=== PATIENT | female | born 1990 ===

== ENCOUNTER 2016-11-04 02:00 | Inpatient (IN) | payer OTHER ==
[2016-11-04 02:33] LABS: SPECIFIC GRAVITY 1.025 (1.001-1.030); URINE BILIRUBIN NEGATIVE (NEGATIVE); URINE BLOOD 1+ (NEGATIVE); URINE GLUCOSE (UA) NEGATIVE (NEGATIVE); URINE LEUKOCYTE ESTERASE TRACE (NEGATIVE); URINE NITRITE NEGATIVE (NEGATIVE); URINE PROTEIN NEGATIVE (NEGATIVE); URINE UROBILINOGEN NORMAL (0-1 mg/dl)
[2016-11-04 02:35] LABS: URINE APPEARANCE SL CLOUDY; URINE COLOR YELLOW
[2016-11-04 02:37] LABS: HCG,QUALITATIVE URINE NEGATIVE
[2016-11-04 02:39] LABS: URINE BACTERIA TRACE
[2016-11-04] MEDS ORDERED: ONDANSETRON 4 MG/2ML 2 ML VIAL ONE ×2 (03:57→08:21)
[2016-11-04] MEDS ORDERED: HYDROMORPHONE HCL 0.5 MG/0.5 ML SYRINGE ONE (03:58)
[2016-11-04] MEDS ORDERED: LACTATED RINGERS 1,000 ML ONE (03:58)
[2016-11-04 04:08] LABS: ABSOLUTE NEUTROPHIL COUNT 9.7 K/mm3 (1.8-7.7); BASO % 0.2 % (0.2-1.0); EOS % 0.3 % (0.9-2.9); HEMATOCRIT 42.5 % (37.0-47.0); HEMOGLOBIN 13.7 gm/l (12.0-16.0); IMM NEUT # 0.1 K/mm3 (0-0.2); IMM NEUT% 0.4 % (0-1); LYMPH # 1.6 (1.0-4.8); LYMPH % 13.8 % (15-45); MEAN CELL VOLUME 87.3 fl (81.0-99.0); MEAN CORPUSCULAR HEMOGLOBIN 28.1 pg (27.0-31.0); MEAN CORPUSCULAR HGB CONC 32.2 g/dl (33.0-37.0); MONO # 0.2 (0.0-0.8); NEUT % 83.3 % (43-75); PLATELET COUNT 238 K/mm3 (130-400); RED CELL DISTRIBUTION WIDTH 13.2 % (11.5-14.5)
[2016-11-04 04:18] LABS: ALB/GLOB RATIO 1.3 (>1.0)
[2016-11-04] MEDS ORDERED: MORPHINE SULFATE 4 MG/ML SYRINGE ONE (05:42)
[2016-11-04] MEDS ORDERED: METRONIDAZOLE 500 MG/NS 100 ML 100 ML IV ONE ×2 (05:42→21:33)
[2016-11-04] MEDS ORDERED: CIPROFLOXACIN IV 400 MG 200 ML IV ONE (05:42)
[2016-11-04] MEDS ORDERED: MENTHOL/CETYLPYRD 1 EACH LOZENGE PO PRN (05:47)
[2016-11-04] MEDS ORDERED: BLISTEX LIPSTICK 1 EACH TP PRN (05:47)
[2016-11-04 05:53] VITALS: BMI 24.4
[2016-11-04] MEDS ORDERED: PIPERACILLIN-TAZO PREMIX BAG 3.375 G in Premix (D5W) 50 ml 1 EACH IV SCH (06:00)
[2016-11-04] MEDS: HYDROMORPHONE HCL 1 MG/ML SYRINGE IV PRN ×4 (06:32→22:04)
[2016-11-04] MEDS: LACTATED RINGERS 1,000 ML IV SCH ×3 (07:00→19:10)
[2016-11-04] MEDS: CIPROFLOXACIN IV 400 MG 400 MG in Premix (D5W) 200 ml 1 EACH IV SCH ×2 (07:30→20:02)
[2016-11-04] MEDS ORDERED: PROPOFOL 20 ML IV ONE (08:21)
[2016-11-04] MEDS ORDERED: LIDOCAINE 2% (MULTI DOSE) 10 ML VIAL ONE (08:21)
[2016-11-04] MEDS ORDERED: DEXAMETHASONE SOD PHOS 4 MG/1 ML VIAL ONE (08:21)
[2016-11-04] MEDS ORDERED: FENTANYL 5 ML ONE (08:21)
[2016-11-04] MEDS ORDERED: MIDAZOLAM HCL 1 MG/ML 2ML VIAL ONE (08:21)
[2016-11-04] MEDS ORDERED: SUCCINYLCHOLINE CHL 20 MG/ML DOSE ONE (08:26)
[2016-11-04] MEDS ORDERED: ROCURONIUM BROMIDE 10 MG/ML DOSE IV ONE (08:26)
[2016-11-04] MEDS ORDERED: IOPAMIDOL 300 (61%) 30 ML SDV ONE (08:32)
[2016-11-04] MEDS ORDERED: LIDOCAINE 1%/EPI (MULTI DOSE) 20 ML VIAL ONE (08:32)
[2016-11-04] MEDS ORDERED: SODIUM CHLORIDE 0.9% 50 ML ONE (09:08)
--- NOTE | 2016-11-04 09:36 | US ---
ABDOMINAL-LIMITED COMPARISON: None HISTORY: Epigastric pain, nausea, and vomiting FINDINGS: Gall bladder: Length 6.5 cm in wall thickness 1.6 mm. 1.6 cm mobile gallstone. Negative Gilliland sign. Common bile duct: 6.9 mm. Unable to visualize the common bile duct at the head of the pancreas because of obscuring bowel gas. IMPRESSION: 1. 1.6 cm mobile gallstone. Preliminary report by [facility] radiologist Doug Dominique M.D. 11/04/2016 at 05:13
[2016-11-04] MEDS ORDERED: GLUCAGON,HUMAN RECOMBINANT 1 MG VIAL ONE (09:37)
[2016-11-04] MEDS ORDERED: PROMETHAZINE HCL 25 MG/ML VIAL IM PRN (09:48)
[2016-11-04] MEDS ORDERED: HYDROMORPHONE HCL 1 MG/ML SYRINGE IV PRN (09:48)
[2016-11-04] MEDS ORDERED: FENTANYL 100 MCG/2 ML VIAL IV PRN (09:48)
[2016-11-04] MEDS ORDERED: MEPERIDINE 25 MG/ML SYRINGE IV PRN (09:48)
[2016-11-04] MEDS ORDERED: ONDANSETRON 4 MG/2ML 2 ML VIAL IV PRN (09:48)
[2016-11-04] MEDS ORDERED: ATROPINE SULFATE 0.4 MG/1 ML VIAL IV PRN (09:48)
[2016-11-04] MEDS ORDERED: NALOXONE HCL 0.4 MG/ML VIAL IV PRN (09:48)
[2016-11-04] MEDS ORDERED: GLYCOPYRROLATE 0.2 MG/ML 1ML VIAL ONE ×2 (09:57→10:02)
[2016-11-04] MEDS ORDERED: NEOSTIGMINE METHYLSULFATE 1 MG/ML DOSE ONE (09:57)
[2016-11-04] MEDS ORDERED: LACTATED RINGERS 1,000 ML IV SCH (10:00)
--- NOTE | 2016-11-04 10:10 | PCMBPN ---
Brief Post Op Note: Date of Procedure: 11/04/16 Start Time: 914 Preoperative Diagnosis: 1. Acute cholecystitis w/ possible choledocholithiasis Postoperative Diagnosis: 1. acute cholecystitis with choledocholithiasis and obstruction Procedure: Laparoscopic cholecystectomy with cholangiogram Surgeon: Lucrecia Brady MD Assist:Indigo Anesthesia: GETOscar Findings: see dictation Condition: stable Complications: none IV Fluids: see anesthesia report Urine Output: not recorded mLs Estimated Blood Loss: 5 mLs Tourniquet Time: N/A Specimens: gallbladder Implants: n/a Drains: [N/A]
[2016-11-04] MEDS ORDERED: NALOXONE HCL 0.4 MG/ML VIAL ONE (10:15)
--- NOTE | 2016-11-04 10:18 | PCMON ---
Date of Procedure: 11/04/16 Start Time: 914 PREOPERATIVE DIAGNOSIS Acute cholecystitis with possible choledocholithiasis. POSTOPERATIVE DIAGNOSIS acute cholecystitis with choledocholithiasis. PROCEDURE PERFORMED Laparoscopic cholecystectomy. COMPLICATIONS None. OPERATIVE FINDINGS Cholecystitis and cholangiogram with normal liver ducts, dilated common bile duct and stone blocking. Unable to clear duct with glucagon. ESTIMATED BLOOD LOSS 30 mL. BRIEF INDICATIONS RUBIN DEL ANGEL is a 26 year old F patient with symptoms consistent with gallbladder disease and was admitted for consideration of laparoscopic cholecystectomy. The preoperative liver function tests were slightly elevated and normal bilirubin, and RUQ-focused ultrasound demonstrated cholelithiasis and common duct at upper limits of normal. Risks and benefits of surgery were explained to the patient, including the 1: 200 risk of common bile duct injury and the possible need for conversion to open technique (5%). The patient declined the possible alternatives and agreed to proceed with surgery, providing informed consent. DESCRIPTION OF PROCEDURE The patient was brought to the operating room and placed supine on the operating room table. A surgical briefing was held to verify the correct patient and correct procedure. A general anesthetic was induced uneventfully, followed by the administration of a subcutaneous heparin injection and perioperative antibiotics. Pneumatic compression stockings were placed on the legs and powered on. The abdomen was prepped and draped in a sterile fashion. A 5-mm direct optical view trocar was used to enter the right upper quadrant under direct vision of the abdominal wall layers. Once inside the abdominal cavity, a pneumoperitoneum was created. No injury to underlying structures occurred with placement of this trocar. Once inside the abdominal cavity, an additional 11-mm port was placed in the upper midline just below the xiphisternum. An additional 5-mm port was placed in the supraumbilical position , and a 5-mm port was placed in the right lateral position. All trocars were placed under direct visualization. There was no injury to underlying structures with placement of these trocars. Once inside the abdominal cavity and the pneumoperitoneum was created, the gallbladder was retracted over the liver. We were able to identify inflammation around the gallbladder, and there appeared to be a stone in Anmol pouch. The gallbladder was then grasped by Anmol pouch and retracted up away from the common bile duct. The dissection was initiated with hook electrocautery on the posterior peritoneum covering of the hepatobiliary triangle, followed by the medical border of the gallbladder in the region of Calot triangle. We identified the lymph node of Calot which was not removed during the dissection. We continued our dissection, mobilizing lymph node off the cystic artery. As the triangle was developed, the cystic artery was identified. An intraoperative cholangiogram was performed. The cystic duct and artery were both identified and exposed. A critical view of safety was obtained by clearing all the tissue between the underside of the infundibulum and the liver so the cystic duct and the artery could be clearly seen going into the gallbladder. The triangle of Calot had no aberrant structures or additional anatomy present within the triangle between the liver bed, the cystic duct and the region of the gallbladder. Once the critical view was demonstrated and there was no evidence of additional structures, we turned our attention to clipping the cystic artery and duct. The cystic artery was clipped twice proximally, once distally and transected. This was confirmed as the artery with pulsatile beating in the region of the clips once transected. Once the artery was taken, we turned our attention to clipping the cystic duct. The cystic duct was clipped distally with one clip. Then a small bryon was made in the side of the duct. There was immediate return of bile as if it was under pressure. A catheter was fed through the abdominal wall and into the duct and clipped in place. Cholangiogram with fluoroscopy was done and a stone was identified in the distal common duct. Glucagon was administered and additional hipec was used to try to push the stone through. Unfortunately the stone was unable to be pushed into the duodenum. The catheter was then removed and two clips were placed proximally on the cystic duct and it was divided with endoshears. No injury to the underlying liver occurred with removal of the gallbladder, there was no evidence of bile leak or bile duct injury, and the gallbladder was not perforated with no spillage of stones prior to removal. The gallbladder was then placed in an Endocatch bag and removed through the 11-mm trocar. Once the trocar was removed, we then irrigated the right upper quadrant. The pneumoperitoneum was released, and the trocars were removed under direct visualization. The fascia was closed at the 11 mm port site with 0 vicryl and the skin was closed with 4-0 monocryl. The patient was awakened and taken to recovery in stable condition. All needle instrument and sponge counts were correct at the end of the case.
--- NOTE | 2016-11-04 11:15 | HP ---
RUBIN RIBEIRO [id number] DATE OF : 1990 DATE OF SERVICE: 11/04/2016 CHIEF COMPLAINT: Abdominal pain. HISTORY OF PRESENT ILLNESS: This is a 26-year-old female with epigastric and right upper quadrant abdominal pain. She has had this for several days now. She has come into the ER a couple of times. It has just been getting worse and not better. The pain radiates to her mid back. It is worse with eating. She has had nausea and vomiting. She has had an episode of diarrhea, but nothing today. She also complains of some suprapubic pain and cystitis. No fevers or chills. She said she did feel hot at one point, but never took her temperature. No sick contacts. No other symptoms or complaints to report. PAST MEDICAL HISTORY: Other than cystitis, no other medical issues. PAST SURGICAL HISTORY: No prior surgeries. ALLERGIES: Penicillin. MEDICATIONS: None. FAMILY HISTORY: Diabetes in her father, with some chronic kidney disease in her father. Mother with breast cancer. SOCIAL HISTORY: Denies alcohol use. Denies tobacco use. Denies illicit drug use or marijuana use. REVIEW OF SYSTEMS: General - some fatigue. No fevers or chills. No changes in hunger, thirst or diet. HEENT - no vision changes, hearing loss, ringing in the ears, nasal discharge or sore throat. Heart - no irregular rhythms, racing heartbeats or chest pain. Lungs - no shortness of breath, coughing, sputum or wheezing. Abdomen - some epigastric pain and right upper quadrant pain radiating to the back. Some nausea and vomiting. A little diarrhea. Musculoskeletal - no weakness, fatigue or joint pain. Neurological - no seizures, headaches or loss of consciousness. Skin - no new lesions, rashes or ulcerations. Genitourinary - increase in frequency and urgency. No pain with urination. Psych - no mood swings, anxiety or depression. PHYSICAL EXAMINATION: GENERAL: The patient is afebrile. Vital signs are stable. She is alert and oriented times three. No acute distress. HEENT: Pupils equal, round and reactive to light. Extraocular motor intact. Mucous membranes are moist. NECK: Supple. No lymphadenopathy. HEART: Regular rate and rhythm. No murmurs, rubs or gallops. LUNGS: Clear to auscultation bilaterally. No wheezes, rhonchi or rales. ABDOMEN: Soft and nondistended. Tenderness in the epigastric and right upper quadrant, without rebound or guarding. MUSCULOSKELETAL: Good range of motion and strength throughout. NEUROLOGICAL: Cranial nerves II-XII grossly intact. SKIN: Warm and dry. PSYCH: Mood and affect are normal. Judgement and insight intact. LABS: White count is elevated to 11. LFTs are slightly elevated, but bilirubin is in the normal range. IMAGING: Ultrasound shows a large stone in the neck of the gallbladder, also at the upper limit of normal-sized common bile duct. ASSESSMENT: This is a 26-year-old female with acute cholecystitis, possible choledocholithiasis. PLAN: I am going to take her to the operating room today and do a laparoscopic cholecystectomy with a cholangiogram. If she has a stone, if I cannot get it to pass, we may have to do an ERCP. If she is cleared, then she can go home later today. I discussed this with her and her sibling. I went over risks, benefits and alternatives. I went over recovery with her. I answered all of her questions. They understand and wish to proceed.
--- NOTE | 2016-11-04 12:28 | RAD ---
CHOLANGIOGRAM-OPERATIVE COMPARISON: Abdomen ultrasound, 11/04/2016 HISTORY: Operative cholangiogram performed by Lucrecia Brady M.D.. Cholelithiasis. Fluoroscopy time: 53.1 seconds. Contrast: Low osmolar. FINDINGS: Common bile duct: Obstructed at the head of the pancreas. Intrahepatic bile ducts: Mildly dilated. Duodenum: Normal. IMPRESSION: 1. Obstruction of the common bile duct at the head of the pancreas.
[2016-11-04] MEDS: METRONIDAZOLE 500 MG/NS 100 ML 500 MG in Premix (NS) 100 ml 1 EACH IV SCH ×2 (13:37→21:37)
[2016-11-05] MEDS: LACTATED RINGERS 1,000 ML IV SCH ×3 (01:21→08:29)
[2016-11-05] MEDS: HYDROMORPHONE HCL 1 MG/ML SYRINGE IV PRN ×2 (04:27→05:57)
[2016-11-05] MEDS ORDERED: METRONIDAZOLE 500 MG/NS 100 ML 100 ML IV ONE (05:54)
[2016-11-05] MEDS: METRONIDAZOLE 500 MG/NS 100 ML 500 MG in Premix (NS) 100 ml 1 EACH IV SCH (05:59)
[2016-11-05 06:31] LABS: HEMATOCRIT 33.5 % (37.0-47.0); HEMOGLOBIN 10.8 gm/l (12.0-16.0); MEAN CELL VOLUME 86.6 fl (81.0-99.0); MEAN CORPUSCULAR HEMOGLOBIN 27.9 pg (27.0-31.0); MEAN CORPUSCULAR HGB CONC 32.2 g/dl (33.0-37.0); RED CELL DISTRIBUTION WIDTH 13.4 % (11.5-14.5)
[2016-11-05 06:55] LABS: ALB/GLOB RATIO 1.3 (>1.0); ALBUMIN 3.1 gm/dL (3.5-5.7); CALCIUM 8.3 mg/dL (8.6-10.3)
[2016-11-05] MEDS: CIPROFLOXACIN IV 400 MG 400 MG in Premix (D5W) 200 ml 1 EACH IV SCH (07:48)
[2016-11-05] MEDS ORDERED: IOPAMIDOL 300 (61%) 100 ML VIAL ONE (09:36)
[2016-11-05] MEDS ORDERED: MIDAZOLAM HCL 1 MG/ML 2ML VIAL ONE (10:28)
[2016-11-05] MEDS ORDERED: FENTANYL 100 MCG/2 ML VIAL ONE ×3 (10:28→11:12)
[2016-11-05] MEDS ORDERED: ROCURONIUM BROMIDE 10 MG/ML DOSE IV ONE (10:56)
[2016-11-05] MEDS ORDERED: DIPHENHYDRAMINE HCL 50 MG/1 ML VIAL ONE (10:56)
[2016-11-05] MEDS ORDERED: NEOSTIGMINE METHYLSULFATE 1 MG/ML DOSE ONE (10:56)
[2016-11-05] MEDS ORDERED: LIDOCAINE 2% (MULTI DOSE) 10 ML VIAL ONE (10:56)
[2016-11-05] MEDS ORDERED: GLYCOPYRROLATE 0.2 MG/ML 1ML VIAL ONE (10:56)
[2016-11-05] MEDS ORDERED: PROPOFOL 20 ML IV ONE (10:56)
[2016-11-05] MEDS ORDERED: DEXAMETHASONE SOD PHOS 4 MG/1 ML VIAL ONE (10:56)
[2016-11-05] MEDS ORDERED: ONDANSETRON 4 MG/2ML 2 ML VIAL ONE (10:56)
[2016-11-05] MEDS ORDERED: ATROPINE SULFATE 0.4 MG/1 ML VIAL IV PRN (11:07)
[2016-11-05] MEDS ORDERED: ONDANSETRON 4 MG/2ML 2 ML VIAL IV PRN ×2 (11:07→12:04)
[2016-11-05] MEDS ORDERED: FENTANYL 100 MCG/2 ML VIAL IV PRN (11:07)
[2016-11-05] MEDS ORDERED: PROMETHAZINE HCL 25 MG/ML VIAL IM PRN (11:07)
[2016-11-05] MEDS ORDERED: HYDROMORPHONE HCL 1 MG/ML SYRINGE IV PRN ×2 (11:07→12:04)
[2016-11-05] MEDS ORDERED: NALOXONE HCL 0.4 MG/ML VIAL IV PRN (11:07)
[2016-11-05] MEDS ORDERED: GLUCAGON,HUMAN RECOMBINANT 1 MG VIAL ONE (11:10)
[2016-11-05] MEDS ORDERED: LACTATED RINGERS 1,000 ML IV SCH ×2 (11:15→12:04)
--- NOTE | 2016-11-05 11:34 | PDOC5 ---
ADMIT DATE: 11/04/16 DISCHARGE DATE: 11/05/2016 ADMISSION DIAGNOSES: Acute cholecystitis with choledocholithiasis PROCEDURES PERFORMED THIS HOSPITALIZATION: Cholecystectomy with cholangiogram and ERCP with sphincterotomy and stone extration CONSULTATIONS: None HOSPITAL COURSE: This is a 26 year old F with RUQ and epigastric pain admitted with diagnosis of acute cholecystitis, enlarged common duct and elevated LFTs. A cholecystectomy was performed and cholangiogram showed stones within the common duct and unable for dye to pass into the duodenum even after giving glucagon. An ERCP with sphincterotomy and stone extraction was performed the following day. She was then able to eat and started on oral pain control. She did well and was discharged in good condition. She is to follow up in [address] Brady. She was given a prescription for percocet. - Objective Vital Signs Temperature 98.0 F 11/05/16 07:47 Pulse Rate 62 11/05/16 07:47 Respiratory Rate 16 11/05/16 07:47 Blood Pressure 112/74 11/05/16 07:47 O2 Saturation by Pulse Oximetry 98 11/05/16 07:47 Oxygen Delivery Method Room Air Oxygen Flow Rate 0 General: Alert, Oriented x3, Cooperative, No Acute Distress HEENT: Atraumatic, PERRLA, EOMI, Mucous membr. moist/pink Lungs: Clear to Auscultation Bilaterally, Normal Air Movement Cardiovascular: Regular Rate and Rhythm, Normal S1, Normal S2, No Murmur Abdomen: Soft, Tenderness (appropriate), Normal Bowel Sounds Extremities: Full ROM, Normal Capillary Refill, Normal Pulses, No Edema Skin: Normal Color, Warm, Dry, Intact, No Rash Wound: Dressing Clean/Dry/Intact Psych/Mental Status: Normal Affect, Normal Mood - Discharge Plan Condition: Good Disposition: Home Additional Instructions: Home Care Instructions Following Laparoscopic Cholecystectomy Dr. Lucrecia Brady MD, FACS Activity You may walk around as tolerated. There is no reason to stay at bed rest. Walking for exercise and light running can be resumed when tolerable. Walking up and down stairs is ok. Sexual activity can be resumed as tolerated. Wound Care The dressings can be taken off after two days. There are steri-strips over the incisions that will fall off in 1-2 weeks. It is ok to shower after the dressings are off. Do not submerge the incisions under water. Work Release Work may be resumed a week or so after going home. This should be light duty with no heavy lifting. Frequent bending, twisting, and reaching should be avoided You should be able to work without restrictions after 3 weeks. Follow Up Appointment You will need to call the office as soon as you get home to set up your follow up appointment for 1-2 weeks after surgery. Write your appointment date/time here: Date Time Restrictions No lifting of more than 5 lbs for 2 weeks. No swimming or hot-tubs for 3 weeks[address] No driving while taking pain medicines. It is ok to drive when you would feel comfortable to slam your foot on the brakes. Diet It is best to start with bland foods, low in fat. Slowly return to a normal diet as tolerated. Be sure to drink plenty of liquids. Medications You will be given a prescription for pain medicine. Use as needed. It is helpful to us Ibuprofen (Motrin, Advil) with your pain medicine. You should take this as directed with food to avoid stomach irritation. Do not take Tylenol with the pain medicine. Pain medicine can cause constipation. Drink plenty of fluids. Use stool softeners as needed. You may use a laxative like colace, milk of magnesia or prune juice if constipated. Office Information The office is open between 8:00-12:00 and 1:00-5:00 pm Sunday through and closes at 3:00pm on Fridays A doctor is performance test consultant 24 hours a day The phone number is Call the office if The incisions become more painful, red or swollen, or if there is drainage. You develop a fever above 101F If you do not have a bowel movement within two days. If you have nausea and cannot keep food or liquids down. Your skin or eyes appear yellow. If you have questions. Other Specific Instructions Prescriptions: Oxycodone HCl/Acetaminophen [PERCOCET 5/325 MG TABLET (SHF)] 1 - 2 tab PO Q4H PRN #60 tab PRN Reason: Pain Follow-Up: Lucrecia Brady MD [Staff Physician] - In 2 weeks
[2016-11-05] MEDS ORDERED: OXYCODONE/ACETAMINOPHEN 5/325 MG TABLET PO PRN (12:04)
[2016-11-05] MEDS ORDERED: HYDROMORPHONE HCL 0.5 MG/0.5 ML SYRINGE IV PRN (12:07)
[2016-11-05 14:39] VITALS: BP 113/76
--- NOTE | 2016-11-05 18:21 | RAD ---
ERCP BILIARY DUCT COMPARISON: Operative cholangiogram, 11/04/2016 HISTORY: Obstructed common bile duct. ERCP performed by Lucrecia Brady M.D. Fluoroscopy time: 120.2 Contrast: Nonionic. FINDINGS: Common bile duct: Normal contrast filling. Normal diameter. No filling defect. Common hepatic duct: Nondilated. Intrahepatic bile ducts: Nondilated. Duodenum: Normal. The Sphincter of Jhonny: Normal IMPRESSION: 1. No evidence of filling defect of the common bile duct.
[2016-11-05] MEDS ORDERED: CIPROFLOXACIN 250 MG TABLET PO SCH (21:00)
--- NOTE | 2016-11-09 12:00 | SURGPATH ---
[facility] [address] [place] [id number] Patient Name: RUBIN RIBEIRO MR#: [id number] : 1990 Gender: F Specimen #: [id number] Collected: 11/04/2016 Received: 11/08/2016 Reported: 11/09/2016 Submitting Phys: IRASEMA HARTMAN Copy To Phys: [facility] Clinical History / Pre-Operative Diagnosis: CHOLELITHIASIS Specimen Source / Surgical Procedure Performed: GALLBLADDER Interpretation: GALLBLADDER, CHOLECYSTECTOMY: - ACUTE AND CHRONIC CHOLECYSTITIS, CHOLESTEROLOSIS AND CHOLELITHIASIS Electronically Signed Out Deuce Hartman M.D. Gross Description: The specimen is received in a formalin filled container labeled with the patient's name and "gallbladder". An intact gallbladder is 7.0 x 2 cm. The serosa is smooth and pink. The wall is edematous and thickened to 0.6 cm. The mucosa is pink and velvety. There is no nodule or induration. The lumen contains thick, opaque yellow-brown bile and a single 1.2 cm vaguely nodular, crystalline yellow calculus. Three maintenance representative sections are submitted in one cassette including a cross section through the cystic duct surgical margin, a central cross section and a longitudinal section through the fundus. Mich Stephen. Microscopic Description: The slide contains portions of gallbladder with glands that extend into the fibromuscular wall. There is patchy chronic and acute inflammation. Cholesterolosis is also present. 1: [id number] K81.2
== END 2016-11-05 14:24 | disposition home or self-care (01) | DRG 419 ==
LOC: ED 02:00 → SDC 05:36 → MS 05:36 → SDC 10:07 → MS 10:07
PROVIDERS: ADMIT Surgery; ATTEND Surgery
PROC: 0FT44ZZ Resection of Gallbladder, Percutaneous Endoscopic Approach (ICD-10-PCS; principal; 2016-11-04)
PROC: BF13YZZ Fluoroscopy of Gallbladder and Bile Ducts using Other Contrast (ICD-10-PCS; 2016-11-04)
PROC: 0FC98ZZ Extirpation of Matter from Common Bile Duct, Via Natural or Artificial Opening Endoscopic (ICD-10-PCS; 2016-11-04)
DX: K80.51 Calculus of bile duct without cholangitis or cholecystitis with obstruction (principal); K21.9 Gastro-esophageal reflux disease without esophagitis; R79.89 Other specified abnormal findings of blood chemistry

== ENCOUNTER 2016-11-05 20:15 | Emergency (ER) | payer OTHER ==
[2016-11-05] MEDS ORDERED: IOPAMIDOL 370 (76%) 100 ML VIAL IV ONE (20:16)
[2016-11-05] MEDS ORDERED: HYDROMORPHONE HCL 0.5 MG/0.5 ML SYRINGE ONE ×2 (21:37→23:36)
[2016-11-05] MEDS ORDERED: ONDANSETRON 4 MG/2ML 2 ML VIAL ONE (21:37)
[2016-11-05 21:48] LABS: ABSOLUTE NEUTROPHIL COUNT 8.4 K/mm3 (1.8-7.7); BASO % 0.1 % (0.2-1.0); HEMATOCRIT 39.8 % (37.0-47.0); HEMOGLOBIN 12.7 gm/l (12.0-16.0); IMM NEUT% 0.4 % (0-1); LYMPH # 1.4 (1.0-4.8); LYMPH % 13.7 % (15-45); MEAN CELL VOLUME 87.3 fl (81.0-99.0); MEAN CORPUSCULAR HEMOGLOBIN 27.9 pg (27.0-31.0); MEAN CORPUSCULAR HGB CONC 31.9 g/dl (33.0-37.0); MEAN PLATELET VOLUME 10.4 fl (7.4-10.4); MONO # 0.5 (0.0-0.8); NEUT % 80.8 % (43-75); PLATELET COUNT 237 K/mm3 (130-400); RED CELL DISTRIBUTION WIDTH 13.6 % (11.5-14.5)
[2016-11-05 22:00] LABS: ALB/GLOB RATIO 1.4 (>1.0); ALBUMIN 3.8 gm/dL (3.5-5.7); CALCIUM 8.9 mg/dL (8.6-10.3)
--- NOTE | 2016-11-05 22:23 | CT ---
Name: RUBIN DEL ANGEL Exam: CT abdomen pelvis with contrast Comparison: None History: Cholecystectomy 11/04/2016. Abdominal pain. Procedure: Helical CT using multidetector technique was applied to the abdomen and pelvis during intravenous administration of 100 cc Isovue-370. No oral contrast was given per ordering physician. An automated dose reduction technique was used to minimize patient radiation dose. Findings: CT abdomen (contrast enhanced): Lung bases are clear. Heart is not enlarged. There is no pericardial effusion. Fatty infiltration liver is identified. The gallbladder is surgically absent. In the gallbladder fossa, small air bubbles are identified along with surgical clips and fluid. There is mild intrahepatic biliary dilation the common bile duct is prominent at 9 mm. Pancreas, spleen, aorta, IVC, portal vein, stomach, small bowel and colon are within normal limits. There is mild free fluid throughout the right upper quadrant with extension down the right paracolic gutter. Multiple foci of free intraperitoneal air are present. There is small amount of air within the right abdominal wall. Subcutaneous air and stranding is identified as well. The above features are consistent with recent laparoscopic cholecystectomy. This exam does not exclude bile leak. There is no abscess. There is mild, right greater than left, hydronephrosis and both ureters are dilated. There is a 1 cm left renal cyst. There is no calculus. CT pelvis (contrast enhanced): The urinary bladder is distended. Normal size uterus is to the left. Ovaries are normal. The appendix is not identified. Small bowel and colon are normal. There is mild free fluid within the right lower quadrant and in the pelvis. There is no free air or abscess. Impression: 1. Common features of recent laparoscopic cholecystectomy. There is no abscess or focal hematoma. Bile leak is not excluded on this exam. 2. Mild intra and extrahepatic biliary dilation. Please see ERCP report dated 11/05/2016 for further information. 3. Mild, right greater than left, bilateral hydronephrosis with bilateral ureterectasis and dilation of the urinary bladder. Somers catheter may be beneficial. There is no calculus. 4. Nonvisualization of the appendix. There is no inflammation surrounding the cecum. Note: The above report was uploaded to [facility]'s electronic medical records system at 2219 hours.
[2016-11-05 23:18] LABS: SPECIFIC GRAVITY 1.015 (1.001-1.030); URINE APPEARANCE CLEAR; URINE BILIRUBIN NEGATIVE (NEGATIVE); URINE BLOOD NEGATIVE (NEGATIVE); URINE COLOR YELLOW; URINE GLUCOSE (UA) NEGATIVE (NEGATIVE); URINE LEUKOCYTE ESTERASE NEGATIVE (NEGATIVE); URINE NITRITE NEGATIVE (NEGATIVE); URINE PROTEIN TRACE (NEGATIVE); URINE UROBILINOGEN NORMAL (0-1 mg/dl)
== END 2016-11-06 01:10 ==
LOC: ED 20:15
DX: R10.9 Unspecified abdominal pain (principal); R11.0 Nausea; R50.9 Fever, unspecified
CPT/HCPCS: 85025; 80053; 81003; 74177; 96375; 96376; 99284 ×2; 96374; J2405; Q9967; J1170 ×2

== ENCOUNTER 2016-11-09 19:54 | Inpatient (IN) | payer OTHER ==
[2016-11-09] MEDS ORDERED: IOPAMIDOL 300 (61%) 100 ML VIAL IV ONE (19:55)
[2016-11-09] MEDS ORDERED: MORPHINE SULFATE 4 MG/ML SYRINGE ONE (20:34)
[2016-11-09] MEDS ORDERED: LACTATED RINGERS 1,000 ML ONE (20:34)
[2016-11-09 21:03] LABS: ABSOLUTE NEUTROPHIL COUNT 11.8 K/mm3 (1.8-7.7); BASO # 0.1 K/mm3 (0.0-0.2); BASO % 0.3 % (0.2-1.0); EOS # 0.1 (0.0-0.5); EOS % 0.4 % (0.9-2.9); HEMATOCRIT 35.9 % (37.0-47.0); HEMOGLOBIN 11.4 gm/l (12.0-16.0); IMM NEUT # 0.2 K/mm3 (0-0.2); IMM NEUT% 1.1 % (0-1); LYMPH # 1.9 (1.0-4.8); LYMPH % 12.8 % (15-45); MEAN CORPUSCULAR HEMOGLOBIN 27.9 pg (27.0-31.0); MEAN CORPUSCULAR HGB CONC 31.8 g/dl (33.0-37.0); MEAN PLATELET VOLUME 9.7 fl (7.4-10.4); MONO % 6.5 % (4-12); NEUT % 78.9 % (43-75); PLATELET COUNT 289 K/mm3 (130-400); RED CELL DISTRIBUTION WIDTH 14.2 % (11.5-14.5)
[2016-11-09 21:13] LABS: ALB/GLOB RATIO 0.9 (>1.0); ALBUMIN 3.1 gm/dL (3.5-5.7); CALCIUM 8.4 mg/dL (8.6-10.3)
[2016-11-09] MEDS ORDERED: MAG HYDROX/AL HYDROX/SIMETH 30 ML UDCUP PO PRN (22:28)
[2016-11-09] MEDS ORDERED: MENTHOL/CETYLPYRD 1 EACH LOZENGE PO PRN (22:28)
[2016-11-09] MEDS ORDERED: BLISTEX LIPSTICK 1 EACH TP PRN (22:28)
[2016-11-09 22:32] VITALS: BMI 24.3
[2016-11-09 22:50] LABS: BAND 3 % (0-10); BASOPHIL 0 % (0-1); EOSINOPHIL 0 % (1-3); LYMPHOCYTE 7 % (15-45); MONOCYTE 5 % (4-12); NEUTROPHILS 85 % (43-75); PLATELET ESTIMATE NORMAL (NORMAL); TOTAL CELLS COUNTED 100
[2016-11-09] MEDS ORDERED: PUMP TUBING ONE (23:33)
[2016-11-09] MEDS: ONDANSETRON 4 MG/2ML 2 ML VIAL IV PRN (23:37)
[2016-11-09] MEDS: KETOROLAC TROMETHAMINE 30 MG/ML 1 ML VIAL IV PRN (23:37)
[2016-11-09] MEDS: LACTATED RINGERS 1,000 ML IV SCH (23:37)
[2016-11-10] MEDS ORDERED: AZTREONAM IV SCH ×2
[2016-11-10] MEDS ORDERED: SODIUM CHLORIDE 0.9% IV SCH ×2
[2016-11-10] MEDS: AZTREONAM IV SCH ×3 (01:19→16:30)
[2016-11-10] MEDS: NS 0.9% IV SCH ×3 (01:19→16:30)
[2016-11-10] MEDS: KETOROLAC TROMETHAMINE 30 MG/ML 1 ML VIAL IV PRN ×3 (06:09→21:02)
[2016-11-10] MEDS: LACTATED RINGERS 1,000 ML IV SCH ×2 (06:09→22:34)
[2016-11-10 06:22] LABS: HEMATOCRIT 31.7 % (37.0-47.0); HEMOGLOBIN 10.2 gm/l (12.0-16.0); MEAN CELL VOLUME 87.8 fl (81.0-99.0); MEAN CORPUSCULAR HEMOGLOBIN 28.3 pg (27.0-31.0); MEAN CORPUSCULAR HGB CONC 32.2 g/dl (33.0-37.0); RED CELL DISTRIBUTION WIDTH 14.5 % (11.5-14.5)
[2016-11-10 06:44] LABS: ALB/GLOB RATIO 0.9 (>1.0); ALBUMIN 2.5 gm/dL (3.5-5.7); CALCIUM 7.9 mg/dL (8.6-10.3)
[2016-11-10] MEDS ORDERED: BISACODYL 10 MG SUP PR ONE (07:44)
--- NOTE | 2016-11-10 08:08 | CT ---
Exam Type: ABD/PELVIS W/ CON Date and Time: 11/09/2016 9:42 PM Clinical information: Recent laparoscopic cholecystectomy with possible small bowel obstruction. Questionable bile leak. Comparison: 11/05/2016. Procedure: Imaging device: [employer] Aquilion [address] scanner 1 mm axial images were obtained through the abdomen and pelvis. Stacked reconstructed 3, 4 and 5 mm images were photographed in the axial coronal and sagittal planes. No oral contrast was utilized for this examination. 95 ml of Isovue-300 was injected intravenously. Exam: with intravenous contrast. FINDINGS: Lung bases: There is evidence of very small bilateral pleural effusions, right greater than left. Associated bibasilar compressive atelectasis is present. Liver: the liver is homogeneous with no discrete abnormality visualized. No definite findings of biliary dilatation are observed. Spleen: The spleen is homogeneous and does not appear to be enlarged. Gallbladder: Surgically absent. There is evidence of persistent fluid within the gallbladder fossa, as well as extending along the right paracolic gutter and along the central mesentery into the pelvis. The amount is similar to that seen on previous examination. Pancreas: Normal without enlargement or evidence of adjacent inflammatory changes. Adrenal glands: Normal without enlargement or evidence of adjacent inflammatory changes. Abdominal aorta: The aorta is of normal caliber and appears to be without significant atherosclerotic disease. Kidneys: The kidneys enhance symmetrically. There is evidence of mild bilateral hilar caliectasis, right greater than left. Bowel structures: Moderate distention of the large bowel loops are identified without a transition or evidence of significant obstruction. Small foci of free air are identified within the nondependent portion of the abdomen. Appendix: The appendix is identified within the central aspect of the pelvis, appearing prominent in size, measuring up to 7 mm transversely. The appendix is located adjacent to the fluid changes described above. Bladder: Moderately distended. Hernia: No abdominal wall or inguinal hernia is visualized on this examination. Adenopathy: No significant enlarged adenopathy is visualized. Osseous structures: No discrete osseous abnormalities are identified. Pelvic structures: No discrete pelvic abnormalities are visualized in this examination. IMPRESSION: 1. Prior cholecystectomy with persistent fluid within the gallbladder fossa as well as extending along the right paracolic gutter and within the central mesentery extending into the pelvis. The volume is relatively stable from the appearance on prior exam. The fluid changes appears slightly more loculated currently with some suggestion of peripheral enhancement observed. No discrete focal collection is visualized however. Bile leak cannot be excluded based on this examination. 2. Small amounts of free air along the muscular layers of the right upper quadrant, likely postsurgical. There is a persistent small amount of nondependent free air identified within the central portion of the abdomen as well. 3. Mild bilateral renal pyelocaliectasis, right greater than left. 4. Moderate distention of the bladder. 5. Moderate fluid distention of the colon without definitive evidence to suggest obstruction. 6. New small bilateral pleural effusions, right greater than left, with associated atelectasis. 7. Mild prominence of the appendix which may be due to the underlying suspected inflammatory process and fluid present. Acute appendicitis is thought less likely though cannot be excluded. The findings were called to the emergency room at 2234 hours, 11/09/2016, by [facility] radiology.
--- NOTE | 2016-11-10 08:11 | RAD ---
ABDOMEN FLAT AND UPRIGHT HISTORY: Recent cholecystectomy with abdominal pain. COMPARISONS: None. FINDINGS: Supine and upright views of the abdomen were performed demonstrating moderately distended loops of large bowel within the upper abdomen extending to the mid portion of the abdomen on the left. There are several primarily colonic air-fluid levels identified. The osseous structures are intact. There is evidence of prior cholecystectomy. IMPRESSION: 1. Moderately distended large bowel loops with the suggestion of several colonic air-fluid levels. Definitive obstruction is not identified. 2. Prior cholecystectomy.
--- NOTE | 2016-11-10 08:50 | HP ---
Liza Nino [id number] DATE: 11/10/2016 CHIEF COMPLAINT: Abdominal pain. HISTORY OF PRESENT ILLNESS: This is a 26-year-old female who presented to the emergency room on 11/04/2016 with abdominal pain that had been going on for a couple of days. She was found to have evidence of acute cholecystitis with cholelithiasis. She was evaluated by Dr. Brady. She underwent laparoscopic cholecystectomy on November 04. She was found to have obstruction of the common bile duct at the head of the pancreas. She subsequently underwent ERCP on the with sphincterotomy. It did not appear that stent was placed at that time. She was discharged on the following day. It sounds like she came back into the emergency room later that day and ended up getting a CT scan. No abscess or hematoma was seen. A bile leak was not excluded. They noted mild intra and extrahepatic biliary dilation. There was some bilateral hydronephrosis with dilation of the urinary bladder. She was discharged to home with Percocet. She has had continued abdominal pain. She reports that she has not had a bowel movement since before surgery. She says she has difficulty urinating. She was having a poor appetite and did throw up what she did eat. She reports some low grade fevers. PAST MEDICAL HISTORY: Some history of cystitis. PAST SURGICAL HISTORY: As above. CURRENT MEDICATIONS: Percocet. ALLERGIES: PENICILLIN. FAMILY HISTORY: Father with diabetes. Father had kidney disease. Mom with history of breast cancer. SOCIAL HISTORY: Denies alcohol or tobacco use. Denies drug use. REVIEW OF SYSTEMS: In general, fatigue and fevers. Cardiac: No complaints. Pulmonary: No complaints. GI: As above. : As above. Musculoskeletal: No complaints. PHYSICAL EXAMINATION: VITAL SIGNS: Temperature 99.5, pulse 106, blood pressure 119/81, respirations 16, O2 sat is 96% on room air. GENERAL: She is awake, alert and appears in no acute distress. HEENT: Head atraumatic, normocephalic. Eyes: Pupils are equal. Sclerae is nonicteric. NECK : Supple. LUNGS: Clear to auscultation. Normal respiratory effort. HEART: Tachycardic. Regular rhythm. No murmurs are heard. ABDOMEN: Moderately distended. Diffusely tender. Soft without involuntary guarding. She has dressings in place over her incisions which are clean, dry, and intact. EXTREMITIES: Without cyanosis, clubbing, or edema. DIAGNOSTICS: X-rays from last night were reviewed. She has significant distention of her transverse colon. CT scan shows fluid and inflammatory changes up in the right upper quadrant extending along the right side of the abdomen. There is a significant amount of stool and air in the colon. This does not have the appearance of a volvulus. She has moderate urinary bladder distention. Review of the notes say that she has 300 of urine output since admission. ASSESSMENT: 1. Abdominal pain status post laparoscopic cholecystectomy with subsequent ERCP. 2. Significant constipation versus ileus. 3. Urinary retention. 4. Fluid within the abdomen with radiographic concern for possible bile leak. PLAN: We will get a HIDA scan to ensure that her bile ducts are draining appropriately without leak. With her fever and tachycardia I started antibiotics. At this point, I do not think that a drain is needed. If clear bile leak is seen then we would consider repeat ERCP with stent placement and possible drain placement in the peritoneal cavity. Because of her urinary retention we will put a Somers catheter in for now. With her constipation we will start with Dulcolax suppository. Encourage ambulation and try to minimize narcotics. She can have Toradol if needed. JOB: [id number]
[2016-11-10] MEDS ORDERED: BISACODYL 10 MG SUP ONE (10:10)
[2016-11-10] MEDS ORDERED: ACETAMINOPHEN 500 MG TABLET PO PRN (13:18)
[2016-11-10] MEDS ORDERED: ENEMA--adult 1 EACH PR PRN (13:19)
--- NOTE | 2016-11-10 16:05 | NUC MED ---
HIDA SCAN: 11/10/2016 7:45 AM COMPARISON: CT abdomen and pelvis 11/09/2016 CLINICAL INDICATION: Cholecystectomy with right upper quadrant pain. Status post ERCP. Check for bile leak. TECHNIQUE: Acquisition time: 60 minutes Scan Region: Abdomen Pre-treatment: None. Injected Dose: 4.8 mCi Tc-99m mebrofenin FINDINGS: Liver: Normal uptake. Bile ducts: Activity escapes the common bile duct and travels along the course of the pancreas across the midline. IMPRESSION: Critical result of a bile leak of the common hepatic/common bile duct transition with abnormal activity crossing the midline along the course of the pancreas. The critical result was discussed with Saroj Chanel M.D. 11/10/2016 at 16:00
[2016-11-10] MEDS: ONDANSETRON 4 MG/2ML 2 ML VIAL IV PRN (20:08)
[2016-11-10] MEDS: HYDROMORPHONE HCL 1 MG/ML SYRINGE IV PRN (21:02)
[2016-11-10] MEDS ORDERED: ACETAMINOPHEN 650 MG SUP PR PRN (21:10)
[2016-11-10] MEDS ORDERED: PROMETHAZINE HCL 12.5 MG in SODIUM CHLORIDE 0.9% 50 ML IV PRN (21:23)
[2016-11-11] MEDS: NS 0.9% IV SCH ×3 (02:38→16:38)
[2016-11-11] MEDS: AZTREONAM IV SCH ×3 (02:38→16:38)
[2016-11-11] MEDS: HYDROMORPHONE HCL 1 MG/ML SYRINGE IV PRN ×3 (02:38→06:10)
[2016-11-11 06:12] LABS: BASO % 0.2 % (0.2-1.0); EOS # 0.1 (0.0-0.5); EOS % 0.8 % (0.9-2.9); HEMATOCRIT 29.2 % (37.0-47.0); HEMOGLOBIN 9.5 gm/l (12.0-16.0); IMM NEUT # 0.5 K/mm3 (0-0.2); IMM NEUT% 4.2 % (0-1); LYMPH # 2.6 (1.0-4.8); LYMPH % 21.1 % (15-45); MEAN CELL VOLUME 87.7 fl (81.0-99.0); MEAN CORPUSCULAR HEMOGLOBIN 28.5 pg (27.0-31.0); MEAN CORPUSCULAR HGB CONC 32.5 g/dl (33.0-37.0); MEAN PLATELET VOLUME 9.3 fl (7.4-10.4); MONO # 0.9 (0.0-0.8); MONO % 7.7 % (4-12); PLATELET COUNT 297 K/mm3 (130-400); RED CELL DISTRIBUTION WIDTH 14.6 % (11.5-14.5)
[2016-11-11] MEDS: LACTATED RINGERS 1,000 ML IV SCH ×4 (06:14→20:14)
[2016-11-11 06:35] LABS: ALB/GLOB RATIO 0.9 (>1.0); ALBUMIN 2.4 gm/dL (3.5-5.7); CALCIUM 7.6 mg/dL (8.6-10.3)
[2016-11-11] MEDS: KETOROLAC TROMETHAMINE 30 MG/ML 1 ML VIAL IV PRN ×3 (07:16→20:56)
--- NOTE | 2016-11-11 08:27 | PDOC43 ---
- Subjective Subjective: Reports Flatus, Reports Pain Tolerable, Reports Fever, Denies Bowel Movement, Denies Vomitting, Denies Nausea - Objective Vital Signs Temperature 100 F 11/11/16 08:17 Pulse Rate 110 11/11/16 08:17 Respiratory Rate 16 11/11/16 07:13 Blood Pressure 123/79 11/11/16 07:13 O2 Saturation by Pulse Oximetry 96 11/11/16 07:13 General: Alert, Oriented x3, Cooperative, No Acute Distress HEENT: Atraumatic, PERRLA, EOMI, Mucous membr. moist/pink Lungs: Clear to Auscultation Bilaterally, Normal Air Movement Cardiovascular: Regular Rate and Rhythm, Normal S1, Normal S2, No Murmur Abdomen: Tenderness, Non-Distended, Normal Bowel Sounds Wound: Dressing Clean/Dry/Intact Psych/Mental Status: Normal Affect, Normal Mood - Assessment/ Plan (1) Bile leak, postoperative Status: AcuteAssessment/ Plan: Duct of luschka leak seen on HIDA She has quite a bit of inflammation in abdomen mixed with fluid No great fluid collection to drain Had large sphincterotomy previously elevated WBC and Fevers Will plan on washing her out laparoscopically and placing a drain. I feel sphincterotomy combined with the small leak should be adequate to heal this.
[2016-11-11] MEDS ORDERED: LIDOCAINE 1%/EPI 1:100,000 (MULTI DOSE) 30 ML VIAL ONE ×2 (09:09→11:40)
[2016-11-11] MEDS ORDERED: MIDAZOLAM HCL 1 MG/ML 2ML VIAL ONE (09:28)
[2016-11-11] MEDS ORDERED: FENTANYL 5 ML ONE (09:28)
[2016-11-11] MEDS ORDERED: PROPOFOL 20 ML IV ONE (09:37)
[2016-11-11] MEDS ORDERED: ROCURONIUM BROMIDE 10 MG/ML DOSE IV ONE (11:40)
[2016-11-11] MEDS ORDERED: DEXAMETHASONE SOD PHOS 4 MG/1 ML VIAL ONE (12:37)
[2016-11-11] MEDS ORDERED: ONDANSETRON 4 MG/2ML 2 ML VIAL ONE (12:37)
[2016-11-11] MEDS ORDERED: GLYCOPYRROLATE 0.2 MG/ML 1ML VIAL ONE (12:42)
[2016-11-11] MEDS ORDERED: NEOSTIGMINE METHYLSULFATE 1 MG/ML DOSE ONE (12:42)
[2016-11-11] MEDS ORDERED: ONDANSETRON 4 MG/2ML 2 ML VIAL IV PRN ×2 (12:48→17:00)
[2016-11-11] MEDS ORDERED: PROMETHAZINE HCL 25 MG/ML VIAL IM PRN (12:48)
[2016-11-11] MEDS ORDERED: MORPHINE SULFATE 4 MG/ML SYRINGE IV PRN (12:48)
[2016-11-11] MEDS ORDERED: LACTATED RINGERS 1,000 ML IV SCH (13:00)
--- NOTE | 2016-11-11 13:16 | PCMBPN ---
Brief Post Op Note: Date of Procedure: 11/11/16 Start Time: 1446 Preoperative Diagnosis: 1. Duct of Luschka bile leak Postoperative Diagnosis: 1. Ileus, urinary retention Procedure: Laparoscopic washout with drain placement Surgeon: Lucrecia Brady MD Assist:n/a Anesthesia: GETA Findings: see dictation Condition: stable Complications: none IV Fluids: see anesthesia report Urine Output: see anesthesia report Estimated Blood Loss: 5 mLs Tourniquet Time: N/A Specimens: N/A Implants: n/a Drains: 15 jamey in gallbladder fossa
[2016-11-11] MEDS ORDERED: FENTANYL 100 MCG/2 ML VIAL ONE (13:34)
[2016-11-11] MEDS: FENTANYL 100 MCG/2 ML VIAL IV PRN ×2 (13:38→13:49)
[2016-11-11] MEDS ORDERED: BISACODYL 10 MG SUP PR PRN (13:56)
[2016-11-11] MEDS ORDERED: MAG HYDROX/AL HYDROX/SIMETH 30 ML UDCUP PO PRN (13:56)
[2016-11-11] MEDS ORDERED: BLISTEX LIPSTICK 1 EACH TP PRN (13:56)
[2016-11-11] MEDS ORDERED: HYDROMORPHONE HCL 1 MG/ML SYRINGE IV PRN (13:56)
[2016-11-11] MEDS ORDERED: MENTHOL/CETYLPYRD 1 EACH LOZENGE PO PRN (13:56)
[2016-11-11] MEDS: HYDROMORPHONE HCL 0.5 MG/0.5 ML SYRINGE IV PRN ×4 (14:29→23:39)
[2016-11-11] MEDS ORDERED: ACETAMINOPHEN 650 MG SUP PR PRN (15:30)
[2016-11-11] MEDS ORDERED: LACTATED RINGERS 1,000 ML ONE (16:34)
[2016-11-11] MEDS: DOCUSATE SODIUM 100 MG CAPSULE PO SCH (20:56)
[2016-11-12] MEDS: AZTREONAM IV SCH ×3 (00:43→17:13)
[2016-11-12] MEDS: NS 0.9% IV SCH ×3 (00:43→17:13)
[2016-11-12] MEDS: LACTATED RINGERS 1,000 ML IV SCH ×4 (00:43→20:50)
[2016-11-12] MEDS: KETOROLAC TROMETHAMINE 30 MG/ML 1 ML VIAL IV PRN ×3 (03:08→15:47)
[2016-11-12] MEDS: HYDROMORPHONE HCL 0.5 MG/0.5 ML SYRINGE IV PRN ×3 (06:31→14:16)
[2016-11-12 07:05] LABS: HEMOGLOBIN 9.7 gm/l (12.0-16.0); MEAN CELL VOLUME 85.5 fl (81.0-99.0); MEAN CORPUSCULAR HEMOGLOBIN 28.6 pg (27.0-31.0); MEAN CORPUSCULAR HGB CONC 33.4 g/dl (33.0-37.0); RED CELL DISTRIBUTION WIDTH 14.4 % (11.5-14.5)
[2016-11-12 07:14] LABS: ALB/GLOB RATIO 0.8 (>1.0); ALBUMIN 2.4 gm/dL (3.5-5.7); CALCIUM 8.2 mg/dL (8.6-10.3)
[2016-11-12] MEDS: DOCUSATE SODIUM 100 MG CAPSULE PO SCH ×2 (09:57→20:50)
[2016-11-12] MEDS: MAGNESIUM HYDROXIDE 30 ML UDCUP PO PRN (10:06)
[2016-11-12] MEDS ORDERED: ENEMA--adult 1 EACH PR PRN (10:09)
--- NOTE | 2016-11-12 10:25 | PDOC43 ---
- Subjective Subjective: Reports Pain Tolerable, Denies Flatus, Denies Nausea - Objective Vital Signs Temperature 98.8 F 11/12/16 07:00 Pulse Rate 72 11/12/16 07:00 Respiratory Rate 18 11/12/16 07:00 Blood Pressure 127/81 11/12/16 07:00 O2 Saturation by Pulse Oximetry 96 11/12/16 07:00 Oxygen Delivery Method Room Air Oxygen Flow Rate 0 Laboratory 11/12/16 05:47 11/12/16 05:47 11/12/16 05:47 RBC 3.39 L BUN 3 L Estimated GFR 191 H Calcium 8.2 L AST 9 L Alkaline Phosphatase 113 H Total Protein 5.3 L Albumin 2.4 L Albumin/Globulin Ratio 0.8 L Active Medication Orders Category Date Time Status Acetaminophen [Tylenol] Med 11/11/16 15:30 Active 650 mg [place] Q8H PRN Bisacodyl [Dulcolax] Med 11/11/16 13:56 Active 10 mg [place] DAILY PRN Docusate Sodium [Colace] Med 11/11/16 21:00 Active 100 mg PO BID Hydromorphone HCl [Dilaudid] Med 11/11/16 13:56 Active 0.5 - 1 mg IV Q1H PRN Hydromorphone HCl [Dilaudid] Med 11/11/16 14:02 Active 0.5 - 1 mg IV Q1H PRN Ketorolac Tromethamine [Toradol] Med 11/11/16 13:56 Active 30 mg IV Q6H PRN Lactated Ringers 1,000 ml Med 11/12/16 10:11 Ordered IV 75 mls/hr Lip [place] [Blistex] Med 11/11/16 13:56 Active 1 each TP PRN PRN Magnesium Hydroxide [Milk of Magnesia] Med 11/11/16 13:56 Active 30 ml PO DAILY PRN Magnesium/Al Hydrox/Simeth [Maalox Plus] Med 11/11/16 13:56 Active 30 ml PO Q4H PRN Menthol/Cetylpyridinium [Cepacol] Med 11/11/16 13:56 Active 1 each PO PRN PRN Na Phos,M-B/Na Phos,Di-Ba [Fleet Adult Enema] Med 11/12/16 10:09 Ordered 1 each [place] DAILY PRN Ondansetron 4 mg/2ml Vial [Zofran] Med 11/11/16 17:00 Active 4 mg IV Q4H PRN Oxycodone HCl/Acetaminophen [Percocet 5/325] Med 11/11/16 13:56 Active 1 - 2 tab PO Q4H PRN Sodium Chloride 0.9% Flush [Normal Saline 10ml Flush] Med 11/11/16 13:56 Active 10 - 50 ml IV PRN PRN Sodium Chloride 0.9% Flush [Normal Saline 10ml Flush] Med 11/11/16 17:00 Active 10 ml IV Q8HR Intake and Output 11/11/16 11/12/16 11/13/16 06:59 06:59 06:59 Intake Total 4077 Output Total 3146 Balance 931 Tubes and Drains Output HUGO #1 20 HUGO #1 26 General: Alert, Oriented x3 Abdomen: Soft, Mild Distention, Other (HUGO drainage is serosanguinous.) Wound: Dressing Clean/Dry/Intact - Assessment/ Plan (1) Ileus following gastrointestinal surgery Status: AcuteAssessment/ Plan: Combination of ileus and narcotic ileus. Try Milk of Magnesia and possible enema. Stay on clear liquids. Add Relistor. (2) Urinary retention Status: AcuteAssessment/ Plan: Remove hassan. Decrease IVF.
--- NOTE | 2016-11-12 15:02 | OP ---
RUBIN RIBEIRO [id number] DATE OF : 1990 DATE OF SERVICE: 11/11/2016 PREOPERATIVE DIAGNOSIS: Duct of Luschka bile leak. POSTOPERATIVE DIAGNOSES: 1. Ileus. 2. Urinary retention. SURGEON: Lucrecia Brady MD RADIOLOGICAL HEALTH SPECIALIST: Not applicable. PROCEDURE: Laparoscopic washout with drain placement. ANESTHESIA: General. FINDINGS: After the ports were placed and inflation established there was no bile observed at all in the abdomen. I peeled the adhesions down at the gallbladder fossa and there was zero bile seen in the gallbladder fossa as well. TECHNIQUE: The patient was taken to the operating room and placed under general anesthesia. The abdomen was prepped and draped in the sterile surgical fashion. Local anesthetic was placed at the incisions that would be used, and a 15-blade scalpel was used to open the prior incision, and was used to open the fascia at the subxiphoid port site. We used the lateral most right upper quadrant incision and left the medial one intact. Once the fascia was opened at the subxiphoid port site and a finger was used to bluntly enter the abdomen, an 11-mm port was placed just through the fascia and then the trocar was removed, and insufflation was established. The 30-degree 5-mm scope was placed in the cavity and no damaged organs on entry. I then placed a 5-mm port in the right upper quadrant at the previous port site and 5-mm port at the periumbilical port site that was used previously. Once those were established, the scope was placed in the delfina-umbilical port site and a suction divemaster was used to look around the liver bed. There was no bile seen around the liver at all. No fluid in fact. I peeled very carefully the omentum that was next to the gallbladder fossa down off of the liver bed and there was no bile colored fluid in this area. There was no purulence, nothing. I irrigated all of the area. There was a little bit of oozing from having pulled the adhesions down that were fresh, and there was some edematous and irrigated tissue, but I saw 0 (zero) bile in all of the washout. Once I used a liter, or so of irrigation since it was all clear fluid and no vile and no purulence, I placed a 15-Andrew drain through the lateral right upper quadrant port and placed it into the gallbladder fossa. I pulled the port site out and sutured it into place. I could see on the scope that the black dot marking the end of the drainage was still in the abdomen after suturing. Once that was secured in place, I removed the port sites, deflated the abdomen, sutured up fascia at the subxiphoid port site and closed with skin incisions with 4-0 Monocryl. The patient was awakened and extubated and returned to recovery room in stable condition. All needles, instruments, and sponge counts were correct at the end of the case. JEB/molly
[2016-11-12] MEDS: OXYCODONE/ACETAMINOPHEN 5/325 MG TABLET PO PRN (18:12)
[2016-11-13] MEDS: AZTREONAM IV SCH ×2 (01:13→08:48)
[2016-11-13] MEDS: NS 0.9% IV SCH ×2 (01:13→08:48)
[2016-11-13] MEDS: OXYCODONE/ACETAMINOPHEN 5/325 MG TABLET PO PRN ×2 (03:12→11:11)
[2016-11-13 05:47] LABS: HEMATOCRIT 28.6 % (37.0-47.0); HEMOGLOBIN 9.2 gm/l (12.0-16.0); MEAN CELL VOLUME 87.7 fl (81.0-99.0); MEAN CORPUSCULAR HEMOGLOBIN 28.2 pg (27.0-31.0); MEAN CORPUSCULAR HGB CONC 32.2 g/dl (33.0-37.0); RED CELL DISTRIBUTION WIDTH 14.5 % (11.5-14.5)
[2016-11-13 05:57] LABS: ALB/GLOB RATIO 0.9 (>1.0); ALBUMIN 2.3 gm/dL (3.5-5.7); CALCIUM 7.8 mg/dL (8.6-10.3)
[2016-11-13] MEDS: KETOROLAC TROMETHAMINE 30 MG/ML 1 ML VIAL IV PRN (07:11)
[2016-11-13] MEDS: DOCUSATE SODIUM 100 MG CAPSULE PO SCH (08:48)
[2016-11-13] MEDS: MAGNESIUM HYDROXIDE 30 ML UDCUP PO PRN (08:48)
[2016-11-13] MEDS ORDERED: [UNRECOGNIZED DRUG - OTHER] PO SCH (09:00)
[2016-11-13] MEDS: LACTATED RINGERS 1,000 ML IV SCH ×2 (10:34→13:52)
--- NOTE | 2016-11-13 12:44 | PDOC5 ---
ADMIT DATE: 11/11/16 DISCHARGE DATE: 11/13/16 ADMISSION DIAGNOSES: Ileus, Urinary retention, bile leak PROCEDURES PERFORMED THIS HOSPITALIZATION: Laparoscopic washout with drain placement CONSULTATIONS: none HOSPITAL COURSE: This is a 26 year old F with abdominal pain who came to the ED. CT showed inflammatory changes and full colon and bladder. She had a hassan placed and was started on a bowel regimen. She was kept NPO and HIDA scan was done for possible bile leak. The HIDA didn't come back until late in the day Sunday and there was concern for duct of luschka leak. The fluid amount was so small it was not amenable to radiology drainage so I decided to drain her laparoscopically. I decided against Stent placement because she alread had a large sphincterotomy and the leak was very small. It would resolve on it's own. With the washout no Bile leak was found. A drain was left in. Over the next couple days no bile output from the drain. She had her Hassan removed POD#1 and her urinary retention seemed resolved. She had two bowel movements in the morning POD#2 so she had her diet advanced and was d/c home. She needs to wean off medication SANDI and continue to walk. She should take stool softeners as long as she is on pain medication. - Objective Vital Signs Temperature 98.2 F 11/13/16 07:05 Pulse Rate 92 11/13/16 07:05 Respiratory Rate 18 11/13/16 07:05 Blood Pressure 119/83 11/13/16 07:05 O2 Saturation by Pulse Oximetry 97 11/13/16 07:05 Oxygen Delivery Method Room Air Oxygen Flow Rate 0 General: Alert, Oriented x3, Cooperative, No Acute Distress HEENT: Atraumatic, PERRLA, EOMI, Mucous membr. moist/pink Lungs: Clear to Auscultation Bilaterally, Normal Air Movement Cardiovascular: Regular Rate and Rhythm, Normal S1, Normal S2, No Murmur Abdomen: Soft, Tenderness (appropriate), Non-Distended, Normal Bowel Sounds Skin: Normal Color, Warm, Dry, Intact, No Rash Wound: Dressing Clean/Dry/Intact Psych/Mental Status: Normal Affect, Normal Mood - Discharge Diagnosis (1) Bile leak, postoperative Status: AcuteAssessment/Plan: Bowel movement urinary retention resolved d/c today f/u in office. - Discharge Plan Disposition: Home Forms: Discharge Instructions Prescriptions: Oxycodone HCl/Acetaminophen [PERCOCET 5/325 MG TABLET (SHF)] 1 - 2 tab PO Q4H PRN #20 tab PRN Reason: Pain Follow-Up: Francis Ariza MD [Primary Care Provider] - 11/17/16 11:15 am
[2016-11-13 13:01] VITALS: BP 121/83
== END 2016-11-13 14:45 | disposition home or self-care (01) | DRG 409 ==
LOC: ED 19:54 → MS 21:57 → OBSVTOIN 11-11 08:17 → MS 11-12 20:13
PROVIDERS: ADMIT Surgery; ATTEND Surgery
PROC: 0F9940Z Drainage of Common Bile Duct with Drainage Device, Percutaneous Endoscopic Approach (ICD-10-PCS; principal; 2016-11-11)
DX: K83.1 Obstruction of bile duct (principal); K91.3 Postprocedural intestinal obstruction; Y83.8 Other surgical procedures as the cause of abnormal reaction of the patient, or of later complication, without mention of misadventure at the time of the procedure; Y92.234 Operating room of hospital as the place of occurrence of the external cause; R33.9 Retention of urine, unspecified